=== PATIENT | female | born 1950 | race Caucasian/White ===

== ENCOUNTER → 2023-05-23 06:26 | Outpatient (REF) | payer MEDICARE, OTHER, SELFPAY ==
[2023-05-23 07:13] LABS: % Basophils 0.7 % (0-2); % Eosinophils 1.4 % (0-6); % Immature Granulocytes 0.4 % (0-0.5); % Lymphocytes 43.7 % (20.5-51.1); % Monocytes 4.7 % (1.7-9.3); % Neutrophils 49.1 % (42.2-75.2); Absolute Basophils 0.1 10^3/uL (0-0.2); Absolute Eosinophils 0.2 10^3/uL (0-0.7); Absolute Lymphocytes 4.5 10^3/uL (1.2-3.4); Absolute Monocytes 0.5 10^3/uL (0.1-0.6); Absolute Neutrophils 5.1 10^3/uL (1.4-6.5); Hematocrit 40.1 % (37.0-47.0); Hemoglobin 13.6 g/dL (12.0-16.0); Mean Corp Hgb Conc. 33.9 g/dL (33.0-37.0); Mean Corpuscular Hgb 29.8 pg (27.0-31.0); Mean Corpuscular Volume 87.9 fL (81.0-99.0); Mean Platelet Volume 10.8 fL (7.4-10.4); Nucleated Red Blood Cells % 0 %; Platelet Count 257 10^3/uL (130-400); Red Blood Cell Count 4.56 10^6/uL (4.20-5.40); Red Cell Dist. Width 12.8 % (11.5-14.5); White Blood Cell Count 10.4 10^3/uL (4.8-10.8)
[2023-05-23 07:28] LABS: ALT (SGPT) 17 U/L (0-35); AST (SGOT) 20 U/L (14-36); Albumin 4.3 g/dl (3.5-5.0); Alkaline Phosphatase 83 U/L (38-126); Blood Urea Nitrogen 27 mg/dl (7-17); Calcium 9.8 mg/dl (8.4-10.2); Carbon Dioxide 30 mmol/L (22-30); Chloride 101 mmol/L (98-107); Glucose 135 mg/dl (70-99); HDL Cholesterol 62 mg/dl; Iron 108 ug/dl (37-170); LDL Cholesterol, Calculated 52 mg/dl; Potassium 4.2 mmol/L (3.5-5.1); Sodium 141 mmol/L (135-145); Total Bilirubin 0.5 mg/dl (0.2-1.3); Total Cholesterol 140 mg/dl (50-199); Triglyceride 133 mg/dl (10-149); Very Low Density Lipoprotein 26 mg/dl (0-30); eGFR > 60.00
[2023-05-23 07:39] LABS: Intact PTH 74.4 pg/ml (13.6-85.8); Percent Saturation 37 % (20-50); Total Iron Binding Capacity 287 ug/dl (265-497)
[2023-05-23 07:43] LABS: Vitamin D, 25-OH*** 65.5 ng/mL (30-80)
[2023-05-23 07:46] LABS: Microalbumin, Random Urine 3.2 mg/dl (0.6-1.7)
[2023-05-23 07:47] LABS: Microalbumin/creatinine Ratio 40.6 mg/g
[2023-05-23 07:57] LABS: TSH 3.33 uIU/ml (0.47-4.68)
[2023-05-23 08:32] LABS: Vitamin B12 > 1000 pg/ml (239-931)
[2023-05-23 09:49] LABS: Glycohemoglobin (HgbA1c) 6.5 % (4.0-5.6)
== END ==
LOC: REG 06:26
PROVIDERS: ATTENDING PHYSICIAN Family Medicine
DX: E11.69 Type 2 diabetes mellitus with other specified complication (principal); I10 Essential (primary) hypertension; E21.3 Hyperparathyroidism, unspecified; Z98.84 Bariatric surgery status; Z79.899 Other long term (current) drug therapy; E78.00 Pure hypercholesterolemia, unspecified; E53.8 Deficiency of other specified B group vitamins; E11.9 Type 2 diabetes mellitus without complications
CPT/HCPCS: 80053; 80061; 82043; 82306; 82570; 82607; 82728; 82746; 83036; 83540; 83550; 83970; 84443; 85025

== ENCOUNTER → 2023-06-27 13:59 | Outpatient (REF) | payer MEDICARE, OTHER, SELFPAY | LOC: HWRAD 13:59 | PROVIDERS: ATTENDING PHYSICIAN Internal Medicine Endocrinology, Diabetes & Metabolism; FAMILY PHYSICIAN Family Medicine | DX: E04.2 Nontoxic multinodular goiter (principal) | CPT/HCPCS: 76536 ==

== ENCOUNTER → 2023-07-17 15:43 | Outpatient (REF) | payer MEDICARE, OTHER, SELFPAY | LOC: WDC 15:43 | PROVIDERS: ATTENDING PHYSICIAN Family Medicine | DX: Z12.31 Encounter for screening mammogram for malignant neoplasm of breast (principal) | CPT/HCPCS: 77063; 77067 ==

== ENCOUNTER 2023-08-26 15:34 | Emergency (ER) | payer MEDICARE, OTHER, SELFPAY ==
[2023-08-26 15:36] VITALS: BP 168/81
[2023-08-26 15:57] VITALS: BP 139/67
[2023-08-26 16:00] VITALS: BP 137/64
--- NOTE | 2023-08-26 16:10 | ED.GENMED ---
History of Present Illness
General
Chief Complaint: Headache
Source: patient
Exam Limitations: none
Time Seen by Provider: 08/26/23 15:51
Nursing documentation reviewed up to this point in time: agreed with
History of Present Illness
History of Present Illness:
73-year-old female with history of A-fib, asthma, GERD, HTN, HLD, NIDDM, Parkinson's, seizures, migraines, pacemaker presents for left parietal headache which started yesterday afternoon, sudden onset, it comes and goes. She is taken Tylenol with
no help. She slept well through the night and when she awakened she had the same headache. She states she feels little nauseous and has not vomited recent head injury. Denies change in vision.
Typically walks with a cane or a walker and she has had no change in her ambulatory status. She denies photophobia or phonophobia.
Past History
Past History
ED Past Medical History: Arrthythmia (Atrial fibrillation), Asthma, GERD, HTN, Hypercholesterolemia, Seizures and Other
ED Past Surgical History: Cardiac (Pacemaker insertion), , Gynecological (Hysterectomy, 2 benign breast surgeries) and Orthopedic (Total knee replacement, rotator cuff repair bilateral shoulders, laminectomy, foot surgery)
Social History
Tobacco: Former smoker
Alcohol: None
Drug: None
Personal:
Living: with family
Employment: Employed
Family History
Family History: Hypertension and Other (Father DM 2, colon cancer at 50 years old, pulmonary edema. Mother: Thoracic aortic aneurysm, rheumatoid arthritis. Sister GBM, multiple sclerosis, rheumatoid arthritis. Brother DM 1)
Review of Systems
Review of Systems
Allergies reviewed?: Yes
All Other Systems: ROS reviewed and negative except as documented in HPI and ROS
Constitutional: Denies fever
Respiratory: Denies trouble breathing
Cardiac: Denies chest pain
ABD/GI: Reports nausea ('mild'); Denies abdominal pain, vomiting or diarrhea
: Denies dysuria, frequency or difficulty voiding
Musculoskeletal: Reports no symptoms; Denies edema
Skin: Reports no symptoms
Neurological: Reports headache; Denies dizzy, weakness or numbness
Phy Exam
Physical Exam
Physical Exam:
GENERAL: No acute distress. A&Ox3.
CONSTITUTIONAL: Afebrile.
EYES: PERRL, conjunctivae normal
Neck: Supple
ENMT: moist mucus membranes, Pharynx nl
RESPIRATORY: Regular respirations, nonlabored, lungs clear.
CARDIOVASCULAR: Regular rate and rhythm, no murmurs, no rubs.
GI: Soft, nontender, normal BS
MUSCULOSKELETAL: Moves with ease. Well perfused. No edema
SKIN: Warm, dry, pink
PSYCH: Depressed mood and affect. Well kept, interactive and appropriate
NEUROLOGIC: Awake, alert and oriented. Speech slow (Parkinson's) CN 2-12 intact. Strength equal throughout, Cerebellum intact. No focal neurological deficits
Course
Orders/Labs/Results
Orders:
Orders
08/26/23
Electrocardiogram (*1) Stat
Other Reason for Exam: CP
08/26/23 16:27
0.9% Sodium Chloride 1000 ml [Nss] 1,000 ml IV BOLUS
Metoclopramide [Reglan] 10 mg IV NOW STA
08/26/23 16:29
Diphenhydramine [Benadryl] 25 mg IV NOW STA
Ketorolac [Toradol] 15 mg IV NOW STA
08/26/23 16:30
Dexamethasone Sod Phosphate [Decadron] 10 mg IV NOW STA
Vital Signs
Initial and Last Documented VS:
Initial Vital Signs
Temp Pulse Resp BP Pulse Ox
98.4 F 72 16 168/81 96
08/26/23 15:36 08/26/23 15:36 08/26/23 15:36 08/26/23 15:36 08/26/23 15:36
Last Documented Vital Signs
Temp Pulse Resp BP Pulse Ox
98.4 F 78 20 146/64 99
08/26/23 15:36 08/26/23 17:45 08/26/23 17:45 08/26/23 17:23 08/26/23 17:45
MDM/Problems Addressed
Differential Diagnosis Includes:
Migraine,
MDM/Problems Addressed:
73-year-old female with history of A-fib, asthma, GERD, HTN, HLD, NIDDM, COPD, Gastric bypass surgery, Parkinson's, seizures, migraines, pacemaker presents for left parietal headache which started yesterday afternoon, sudden onset, it comes and
goes. She is taken Tylenol with no help. She slept well through the night and when she awakened she had the same headache. She states she feels little nauseous and has not vomited recent head injury. Denies change in vision.
Typically walks with a cane or a walker and she has had no change in her ambulatory status. She denies photophobia or phonophobia.
Patient was evaluated here twice in March for headaches, DC'd home each time.
History of migraines, no focal neurologic, no acute distress, no recent injury, not anticoagulated, no indication for imaging or lab work at this time
Patient was cleared by her hand roller last week, he did a pacer check which showed proper pacing functions
Patient has an appointment with her neurologist on 09/11 as follow-up for her migraines and headaches
5:45 PM:
After IV fluids and medications patient states her headache is better and is requesting to go home
She states she has an appointment with her neurologist on 09/11.
Patient states her Apple Watch showed her heart rate of 110 for a few seconds earlier today. During her entire stay here her heart rate has been in the 70s.
Stable for discharge to care of who states he is comfortable taking her home.
Chronic conditions affecting care: HTN and Neurological disorder (Parkinson's )
*Critical Care Note
Total Time (30-74mins, 75-104mins- exclusive of procedures): Not Applicable
ED Attending Note
-
Portions of this chart may have been created with voice recognition software.� Occasional wrong word or��sound alike� substitutions may have occurred due to the inherent limitations of voice recognition software.
Discharge Plan
Departure
Patient Disposition: Home (Routine Discharge)
Date of Disposition: 08/26/23
Time of Disposition: 17:43
Patient with high blood pressure during this ER visit?: No
Condition: Good
Discharge Problem:
Headache
Instructions: Headache, Adult (DC)
Prescriptions:
No Action
pramipexole 0.25 MG tablet
0.5 mg PO TID
metformin 500 MG tablet extended release 24 hr
1,000 mg PO BID@0800,1700
loratadine 10 MG tablet
10 mg PO DAILY
bumetanide 1 MG tablet
1 mg PO DAILYPRN PRN (Reason: swelling)
cyanocobalamin (vitamin B-12) 1,000 MCG tablet
1,000 mcg PO DAILY Qty: 30 0RF
metoprolol tartrate 25 MG tablet
50 mg PO BID 0RF
rosuvastatin 5 MG tablet
5 mg PO DAILY
polyethylene glycol 3350 17 GRAMS powder in packet
17 grams PO DAILYPRN PRN (Reason: constipation)
clonazepam 0.5 MG tablet
0.5 mg PO HS
Patient Comments:
patient cloth picker on 06/17/21 #30
tramadol 50 MG tablet
50 mg PO Q6HPRN PRN (Reason: moderate pains)
losartan 25 MG tablet
25 mg PO DAILY
gabapentin 100 MG capsule
100 mg PO TID
Patient Comments:
1 cap in morning, 1 cap in afternoon and 3 caps at night
cholecalciferol (vitamin D3) 1,000 UNITS tablet
1,000 units PO DAILY
multivitamin with folic acid [Tab-A-Kaia] 1 TABLET tablet
1 tab PO DAILY
prochlorperazine maleate [Compazine] 10 mg tablet
10 mg PO TID PRN (Reason: nausea and vomiting) Qty: 10 0RF
Referrals:
Dakota Kwong MD [Non-Admitting Privileges] - Keep scheduled appt
Radha Jackson MD [Family Provider] - As needed
Activity Restrictions/Additional Instructions:
As we discussed, keep your appointment with your neurologist on 09/11.
Interventions
Interventions:
*Risk Screen - Suicide Last Done: 08/26/23 16:35
*General Assessment Last Done: 08/26/23 16:35
*Neglect/Abuse Screening Last Done: 08/26/23 16:35
ED- Fall Risk Assessment Last Done: 08/26/23 16:52
*ED COVID-19 Vaccine History Last Done: 08/26/23 15:36
*Nursing Disposition Last Done: 08/26/23 17:49
ED- Neurological Assessment Last Done: 08/26/23 16:51
Discharge Date and Time
Discharge Date/Time: 08/26/23 17:55
Print Language: LUX[place]
[2023-08-26 16:34] VITALS: BMI 40.8
[2023-08-26] MEDS: BENADRYL 25 MG IV (16:43)
[2023-08-26] MEDS: DECADRON 10 MG IV (16:43)
[2023-08-26] MEDS: NSS 1000 IV (16:43)
[2023-08-26] MEDS: TORADOL 15 MG IV (16:43)
[2023-08-26] MEDS: REGLAN 10 MG IV (16:44)
[2023-08-26 17:00] VITALS: BP 142/85
[2023-08-26 17:23] VITALS: BP 146/64
== END 2023-08-26 17:55 | disposition home or self-care (01) ==
LOC: EMR 15:34
PROVIDERS: EMERGENCY PHYSICIAN Emergency Medicine; FAMILY PHYSICIAN Family Medicine
DX: R51.9 Headache, unspecified (principal); I48.91 Unspecified atrial fibrillation; J45.909 Unspecified asthma, uncomplicated; I10 Essential (primary) hypertension; E78.00 Pure hypercholesterolemia, unspecified; E11.9 Type 2 diabetes mellitus without complications; G20.A1 Parkinson's disease without dyskinesia, without mention of fluctuations; G40.909 Epilepsy, unspecified, not intractable, without status epilepticus
CPT/HCPCS: 99283; 96374; 96375; 96361; 93005

== ENCOUNTER → 2023-09-11 06:27 | Outpatient (REF) | payer MEDICARE, OTHER, SELFPAY ==
[2023-09-11 07:24] LABS: % Basophils 0.5 % (0-2); % Eosinophils 0.9 % (0-6); % Immature Granulocytes 0.5 % (0-0.5); % Lymphocytes 37.7 % (20.5-51.1); % Monocytes 3.7 % (1.7-9.3); % Neutrophils 56.7 % (42.2-75.2); Absolute Basophils 0.1 10^3/uL (0-0.2); Absolute Eosinophils 0.1 10^3/uL (0-0.7); Absolute Immature Granulocytes 0.1 10^3/uL (0-0.05); Absolute Lymphocytes 4.2 10^3/uL (1.2-3.4); Absolute Monocytes 0.4 10^3/uL (0.1-0.6); Absolute Neutrophils 6.3 10^3/uL (1.4-6.5); Hemoglobin 13.1 g/dL (12.0-16.0); Mean Corp Hgb Conc. 34.5 g/dL (33.0-37.0); Mean Corpuscular Hgb 30.8 pg (27.0-31.0); Mean Corpuscular Volume 89.2 fL (81.0-99.0); Mean Platelet Volume 10.9 fL (7.4-10.4); Nucleated Red Blood Cells % 0 %; Platelet Count 223 10^3/uL (130-400); Red Blood Cell Count 4.26 10^6/uL (4.20-5.40); Red Cell Dist. Width 13.1 % (11.5-14.5)
[2023-09-11 07:44] LABS: INR 1.17; PT 14.8 Sec (11.4-14.6)
[2023-09-11 07:45] LABS: APTT 31.7 Sec (23.4-35.0)
[2023-09-11 07:54] LABS: Microalbumin, Random Urine 1.4 mg/dl (0.6-1.7); Microalbumin/creatinine Ratio 11.8 mg/g
[2023-09-11 07:58] LABS: ALT (SGPT) 15 U/L (0-35); AST (SGOT) 19 U/L (14-36); Alkaline Phosphatase 84 U/L (38-126); Blood Urea Nitrogen 21 mg/dl (7-17); Calcium 9.5 mg/dl (8.4-10.2); Carbon Dioxide 28 mmol/L (22-30); Chloride 105 mmol/L (98-107); Glucose 125 mg/dl (70-99); Sodium 140 mmol/L (135-145); Total Bilirubin 0.5 mg/dl (0.2-1.3); Total Protein 6.4 g/dl (6.3-8.2); eGFR > 60.00
[2023-09-11 08:06] LABS: Potassium 4.1 mmol/L (3.5-5.1)
[2023-09-11 11:12] LABS: Glycohemoglobin (HgbA1c) 6.2 % (4.0-5.6)
== END ==
LOC: REG 06:27
PROVIDERS: ATTENDING PHYSICIAN Orthopaedic Surgery Sports Medicine; FAMILY PHYSICIAN Family Medicine
DX: G20.A1 Parkinson's disease without dyskinesia, without mention of fluctuations (principal); E11.69 Type 2 diabetes mellitus with other specified complication; R80.1 Persistent proteinuria, unspecified; I10 Essential (primary) hypertension; Z01.818 Encounter for other preprocedural examination; M79.605 Pain in left leg; R73.03 Prediabetes
CPT/HCPCS: 36415; 80053; 82043; 82570; 83036; 85025; 85610; 85730

== ENCOUNTER → 2023-09-22 08:38 | Outpatient (REF) | payer MEDICARE, OTHER, SELFPAY ==
[2023-09-22 09:35] LABS: % Basophils 0.6 % (0-2); % Eosinophils 1.1 % (0-6); % Immature Granulocytes 0.4 % (0-0.5); % Lymphocytes 40.9 % (20.5-51.1); % Monocytes 5.8 % (1.7-9.3); % Neutrophils 51.2 % (42.2-75.2); Absolute Basophils 0.1 10^3/uL (0-0.2); Absolute Eosinophils 0.1 10^3/uL (0-0.7); Absolute Immature Granulocytes 0.1 10^3/uL (0-0.05); Absolute Lymphocytes 4.6 10^3/uL (1.2-3.4); Absolute Monocytes 0.7 10^3/uL (0.1-0.6); Absolute Neutrophils 5.8 10^3/uL (1.4-6.5); Hematocrit 40.5 % (37.0-47.0); Hemoglobin 13.9 g/dL (12.0-16.0); Mean Corp Hgb Conc. 34.3 g/dL (33.0-37.0); Mean Corpuscular Hgb 30.7 pg (27.0-31.0); Mean Corpuscular Volume 89.4 fL (81.0-99.0); Mean Platelet Volume 10.8 fL (7.4-10.4); Nucleated Red Blood Cells % 0 %; Platelet Count 249 10^3/uL (130-400); Red Blood Cell Count 4.53 10^6/uL (4.20-5.40); Red Cell Dist. Width 13.1 % (11.5-14.5); White Blood Cell Count 11.3 10^3/uL (4.8-10.8)
[2023-09-22 09:38] LABS: Urine Albumin Trace (Neg - Trace); Urine Bilirubin 1+ (Negative); Urine Character Clear (Clear); Urine Color Yellow; Urine Glucose Negative (Negative); Urine Ketone Trace (Negative); Urine Leukocyte 2+ (Negative); Urine Nitrite Negative (Negative); Urine Occult Blood Trace (Negative); Urine Urobilinogen 1+ (Neg - 1+)
[2023-09-22 09:56] LABS: Urine Bacteria Many (Negative); Urine Red Blood Cell 0-2 /HPF (0-2); Urine White Cell 16-20 /HPF (0-5)
== END ==
LOC: RAD 08:38
PROVIDERS: ATTENDING PHYSICIAN Family Medicine
DX: D72.829 Elevated white blood cell count, unspecified (principal); Z79.899 Other long term (current) drug therapy
CPT/HCPCS: 36415; 71046; 81003; 81015; 85025; 87086

== ENCOUNTER → 2023-09-25 16:13 | Outpatient (REF) | payer MEDICARE, OTHER, SELFPAY | LOC: REG 16:13 | PROVIDERS: ATTENDING PHYSICIAN Family Medicine | DX: D72.828 Other elevated white blood cell count (principal); N39.0 Urinary tract infection, site not specified | CPT/HCPCS: 87086 ==

== ENCOUNTER 2023-11-27 13:48 | Outpatient (RCR) | payer MEDICARE, OTHER, SELFPAY | END 2023-11-27 23:59 | disposition home or self-care (01) | LOC: RPT 13:48 | PROVIDERS: ATTENDING PHYSICIAN Orthopaedic Surgery Sports Medicine; FAMILY PHYSICIAN Internal Medicine | DX: Z96.652 Presence of left artificial knee joint (principal); Z47.1 Aftercare following joint replacement surgery; R26.89 Other abnormalities of gait and mobility; Z73.6 Limitation of activities due to disability | CPT/HCPCS: 97010; 97110; 97162; 97530; 97535 ==

== ENCOUNTER → 2023-12-25 13:01 | Outpatient (REF) | payer MEDICARE, OTHER, SELFPAY | LOC: RAD 13:01 | PROVIDERS: ATTENDING PHYSICIAN Nurse Practitioner Adult Health; FAMILY PHYSICIAN Family Medicine | DX: M79.662 Pain in left lower leg (principal); Z86.718 Personal history of other venous thrombosis and embolism; I48.0 Paroxysmal atrial fibrillation; R60.0 Localized edema | CPT/HCPCS: 93971 ==

== ENCOUNTER 2023-12-28 10:55 | Outpatient (RCR) | payer MEDICARE, OTHER, SELFPAY | END 2023-12-28 23:59 | disposition home or self-care (01) | LOC: RPT 10:55 | PROVIDERS: ATTENDING PHYSICIAN Orthopaedic Surgery Sports Medicine; FAMILY PHYSICIAN Internal Medicine | DX: Z47.1 Aftercare following joint replacement surgery (principal); Z96.652 Presence of left artificial knee joint; R26.89 Other abnormalities of gait and mobility; Z73.6 Limitation of activities due to disability | CPT/HCPCS: 97010; 97110; 97530 ==

== ENCOUNTER → 2024-01-03 15:00 | Outpatient (REF) | payer MEDICARE, OTHER, SELFPAY ==
[2024-01-03 17:38] LABS: Urine Albumin Trace (Neg - Trace); Urine Bilirubin 3+ (Negative); Urine Character Very Cloudy (Clear); Urine Color Red; Urine Glucose Negative (Negative); Urine Ketone Negative (Negative); Urine Leukocyte 1+ (Negative); Urine Nitrite Positive (Negative); Urine Occult Blood Trace (Negative); Urine Specific Gravity 1.015 (<1.030); Urine Urobilinogen 4+ (Neg - 1+)
[2024-01-03 17:54] LABS: Hematocrit 40.2 % (37.0-47.0); Hemoglobin 13.2 g/dL (12.0-16.0); Mean Corp Hgb Conc. 32.8 g/dL (33.0-37.0); Mean Corpuscular Hgb 28.6 pg (27.0-31.0); Mean Corpuscular Volume 87.2 fL (81.0-99.0); Mean Platelet Volume 11.2 fL (7.4-10.4); Platelet Count 324 10^3/uL (130-400); Red Blood Cell Count 4.61 10^6/uL (4.20-5.40); Red Cell Dist. Width 13.1 % (11.5-14.5); White Blood Cell Count 14.2 10^3/uL (4.8-10.8)
[2024-01-03 17:58] LABS: Urine Red Blood Cell 0-2 /HPF (0-2); Urine White Cell 30-40 /HPF (0-5)
[2024-01-03 17:59] LABS: Urine Bacteria Many (Negative)
[2024-01-03 18:49] LABS: % Basophils 0.6 % (0-2); % Eosinophils 0.9 % (0-6); % Immature Granulocytes 0.4 % (0-0.5); % Lymphocytes 38.3 % (20.5-51.1); % Monocytes 5.1 % (1.7-9.3); % Neutrophils 54.7 % (42.2-75.2); Absolute Basophils 0.1 10^3/uL (0-0.2); Absolute Eosinophils 0.1 10^3/uL (0-0.7); Absolute Immature Granulocytes 0.1 10^3/uL (0-0.05); Absolute Lymphocytes 5.4 10^3/uL (1.2-3.4); Absolute Monocytes 0.7 10^3/uL (0.1-0.6); Absolute Neutrophils 7.8 10^3/uL (1.4-6.5); Nucleated Red Blood Cells % 0 %
== END ==
LOC: REG 15:00
PROVIDERS: ATTENDING PHYSICIAN Nurse Practitioner Adult Health; FAMILY PHYSICIAN Family Medicine
DX: D72.829 Elevated white blood cell count, unspecified (principal); R39.9 Unspecified symptoms and signs involving the genitourinary system
CPT/HCPCS: 36415; 81003; 81015; 85025; 87077; 87086; 87186

== ENCOUNTER → 2024-03-29 09:28 | Outpatient (REF) | payer MEDICARE, OTHER, SELFPAY ==
[2024-03-29 10:04] LABS: % Basophils 0.5 % (0-2); % Eosinophils 1.4 % (0-6); % Immature Granulocytes 0.4 % (0-0.5); % Monocytes 5.3 % (1.7-9.3); % Neutrophils 51.4 % (42.2-75.2); Absolute Basophils 0.1 10^3/uL (0-0.2); Absolute Eosinophils 0.1 10^3/uL (0-0.7); Absolute Lymphocytes 3.8 10^3/uL (1.2-3.4); Absolute Monocytes 0.5 10^3/uL (0.1-0.6); Absolute Neutrophils 4.7 10^3/uL (1.4-6.5); Hematocrit 37.7 % (37.0-47.0); Hemoglobin 12.4 g/dL (12.0-16.0); Mean Corp Hgb Conc. 32.9 g/dL (33.0-37.0); Mean Corpuscular Volume 88.1 fL (81.0-99.0); Nucleated Red Blood Cells % 0 %; Platelet Count 255 10^3/uL (130-400); Red Blood Cell Count 4.28 10^6/uL (4.20-5.40); White Blood Cell Count 9.2 10^3/uL (4.8-10.8)
[2024-03-29 10:33] LABS: Microalbumin, Random Urine 12.2 mg/dl (0.6-1.7)
[2024-03-29 10:36] LABS: ALT (SGPT) 21 U/L (0-35); AST (SGOT) 21 U/L (14-36); Albumin 4.3 g/dl (3.5-5.0); Alkaline Phosphatase 93 U/L (38-126); Blood Urea Nitrogen 24 mg/dl (7-17); Calcium 9.6 mg/dl (8.4-10.2); Carbon Dioxide 25 mmol/L (22-30); Chloride 103 mmol/L (98-107); Glucose 132 mg/dl (70-99); HDL Cholesterol 67 mg/dl; LDL Cholesterol, Calculated 49 mg/dl; Sodium 140 mmol/L (135-145); Total Bilirubin 0.5 mg/dl (0.2-1.3); Total Cholesterol 139 mg/dl (50-199); Total Protein 7.1 g/dl (6.3-8.2); Triglyceride 117 mg/dl (10-149); Very Low Density Lipoprotein 23 mg/dl (0-30); eGFR > 60.00
[2024-03-29 11:04] LABS: TSH Reflex To Free T4 3.48 uIU/ml (0.47-4.68)
[2024-03-29 11:23] LABS: Vitamin B12 906 pg/ml (239-931)
[2024-03-29 13:22] LABS: Glycohemoglobin (HgbA1c) 6.2 % (4.0-5.6)
== END ==
LOC: REG 09:28
PROVIDERS: ATTENDING PHYSICIAN Family Medicine
DX: E11.69 Type 2 diabetes mellitus with other specified complication (principal); E78.00 Pure hypercholesterolemia, unspecified; E53.8 Deficiency of other specified B group vitamins; I10 Essential (primary) hypertension
CPT/HCPCS: 36415; 80053; 80061; 82043; 82570; 82607; 83036; 84443; 85025

== ENCOUNTER → 2024-06-20 07:31 | Outpatient (REF) | payer MEDICARE, OTHER, SELFPAY ==
[2024-06-20 09:10] LABS: INR 1.13; PT 14.8 Sec (11.4-14.6)
[2024-06-20 09:38] LABS: ALT (SGPT) 14 U/L (0-35); AST (SGOT) 19 U/L (14-36); Albumin 4.2 g/dl (3.5-5.0); Alkaline Phosphatase 90 U/L (38-126); Blood Urea Nitrogen 25 mg/dl (7-17); Calcium 9.9 mg/dl (8.4-10.2); Carbon Dioxide 26 mmol/L (22-30); Chloride 105 mmol/L (98-107); Glucose 146 mg/dl (70-99); Potassium 4.4 mmol/L (3.5-5.1); Sodium 142 mmol/L (135-145); Total Bilirubin 0.5 mg/dl (0.2-1.3); Total Protein 7.1 g/dl (6.3-8.2); eGFR > 60.00
[2024-06-20 09:55] LABS: Glycohemoglobin (HgbA1c) 6.6 % (4.0-5.6)
[2024-06-20 11:48] LABS: Microalbumin, Random Urine 11.3 mg/dl (0.6-1.7)
[2024-06-20 11:53] LABS: Microalbumin/creatinine Ratio 88.8 mg/g
== END ==
LOC: REG 07:31
PROVIDERS: ATTENDING PHYSICIAN Internal Medicine Cardiovascular Disease; FAMILY PHYSICIAN Family Medicine
DX: I48.0 Paroxysmal atrial fibrillation (principal); Z79.01 Long term (current) use of anticoagulants; E11.69 Type 2 diabetes mellitus with other specified complication; E11.65 Type 2 diabetes mellitus with hyperglycemia
CPT/HCPCS: 36415; 80053; 82043; 82570; 83036; 85610

== ENCOUNTER → 2024-06-26 07:07 | Outpatient (REF) | payer MEDICARE, OTHER, SELFPAY ==
[2024-06-26 07:51] LABS: PT 23.1 Sec (11.4-14.6)
== END ==
LOC: REG 07:07
PROVIDERS: ATTENDING PHYSICIAN Internal Medicine Cardiovascular Disease; FAMILY PHYSICIAN Family Medicine
DX: I48.0 Paroxysmal atrial fibrillation (principal); Z79.01 Long term (current) use of anticoagulants
CPT/HCPCS: 36415; 85610

== ENCOUNTER → 2024-07-03 08:45 | Outpatient (REF) | payer MEDICARE, OTHER, SELFPAY ==
[2024-07-03 09:33] LABS: INR 3.08; PT 32.1 Sec (11.4-14.6)
== END ==
LOC: REG 08:45
PROVIDERS: ATTENDING PHYSICIAN Internal Medicine Cardiovascular Disease
DX: I48.0 Paroxysmal atrial fibrillation (principal); Z79.01 Long term (current) use of anticoagulants
CPT/HCPCS: 36415; 85610

== ENCOUNTER → 2024-07-10 13:07 | Outpatient (REF) | payer MEDICARE, OTHER, SELFPAY ==
[2024-07-10 15:20] LABS: INR 2.95; PT 31.1 Sec (11.4-14.6)
== END ==
LOC: REG 13:07
PROVIDERS: ATTENDING PHYSICIAN Internal Medicine Cardiovascular Disease; FAMILY PHYSICIAN Family Medicine
DX: I48.0 Paroxysmal atrial fibrillation (principal); Z79.01 Long term (current) use of anticoagulants
CPT/HCPCS: 36415; 85610

== ENCOUNTER → 2024-08-04 10:03 | Outpatient (REF) | payer MEDICARE, OTHER, SELFPAY ==
[2024-08-04 10:57] LABS: INR 3.19; PT 32.5 Sec (11.4-14.6)
== END ==
LOC: REG 10:03
PROVIDERS: ATTENDING PHYSICIAN Internal Medicine Cardiovascular Disease; FAMILY PHYSICIAN Family Medicine
DX: I48.0 Paroxysmal atrial fibrillation (principal)
CPT/HCPCS: 36415; 85610

== ENCOUNTER 2024-08-06 00:57 | Emergency (ER) | payer MEDICARE, OTHER, SELFPAY ==
[2024-08-06 01:01] VITALS: BP 178/91
[2024-08-06 01:02] VITALS: BP 178/91
--- NOTE | 2024-08-06 01:37 | ED.GENMED ---
History of Present Illness
General
Chief Complaint: Chest Pain
Source: patient
Exam Limitations: none
Time Seen by Provider: 08/06/24 01:33
Nursing documentation reviewed up to this point in time: agreed with
History of Present Illness
History of Present Illness:
74-year-old female with a past medical history of COPD, Parkinson disease, A-fib on warfarin, hypertension, hyperlipidemia, diabetes who presents to the emergency department today with concerns of chest pain. Patient reports that the pain woke her
up from sleep at around 10 PM. She rates the pain a 6 out of 10. She denies radiation through the chest through the back. She never had this pain before. EMS was called and she was given aspirin. Patient feels like the aspirin did help her
symptoms. She currently rates the pain 3 out of 10. She also felt diaphoretic and nauseous at that time. She denies any abdominal pain. She denies any back pain. She denies any fevers or chills. Denies any vomiting. She has a pacemaker in
place since age 50 due to symptomatic bradycardia. She follows with Dr. Loja. She states that she has been feeling well the past few days and that this came on all of a sudden. Patient denies any history of MT. She denies any paresthesias in
her upper or lower extremities.
Past History
Past History
ED Past Medical History: Arrthythmia (Atrial fibrillation), Asthma, GERD, HTN, Hypercholesterolemia, Seizures and Other
ED Past Surgical History: Cardiac (Pacemaker insertion), , Gynecological (Hysterectomy, 2 benign breast surgeries) and Orthopedic (Total knee replacement, rotator cuff repair bilateral shoulders, laminectomy, foot surgery)
Social History
Tobacco: Former smoker
Alcohol: None
Drug: None
Personal:
Living: with family
Employment: Employed
Family History
Family History: Hypertension and Other (Father DM 2, colon cancer at 50 years old, pulmonary edema. Mother: Thoracic aortic aneurysm, rheumatoid arthritis. Sister GBM, multiple sclerosis, rheumatoid arthritis. Brother DM 1)
Review of Systems
Review of Systems
All Other Systems: ROS reviewed and negative except as documented in HPI and ROS
Phy Exam
Physical Exam
Physical Exam:
General: Patient is well appearing and in no acute distress; non-toxic
Skin: Warm and dry, no rashes or lesions
Head: Normocephalic, atraumatic
Eyes: Sclera non-icteric. EOMs intact.
Cardiac: Regular rate and rhythm, no murmurs, no tenderness to palpation of external chest wall
Peripheral Vascular: No lower extremity swelling or edema
Pulm: Normal respiratory effort, no wheezes, rales, or rhonchi
Abdomen: No abdominal tenderness to palpation, no epigastric tenderness
Neuro: CN II-XII intact, no focal neurologic deficits.
Psychiatric: Appropriate mood and affect.
Scores
Heart Score for Chest Pain Patients
STEMI patient?: No
History: Moderately Suspicious
ECG: Normal
Age: >/= 65 years
Risk Factors: 1 or 2 Risk Factors
Troponin: </= Normal Limit
Heart Score for Chest Pain Patients: 4
Heart Score Risk: 20.3% MACE over next 6 weeks
PE Wells Score
Symptoms of DVT: No
No alternative diagnosis better explains the illness: No
Tachycardia with pulse > 100: No
Immobilization (>=3 days) or surgery within previous 4 weeks: No
Prior history of DVT or pulmonary embolism: No
Presence of hemoptysis: No
Presence of malignancy: No
Pulmonary Embolism Risk Score: 0
Probability of PE: Pt is low risk
Course
Orders/Labs/Results
Orders:
Orders
08/06/24 01:00
Electrocardiogram (*1) Urgent
Reason for Study: Chest Pain
Cardiac Monitoring- Treatment ONCE
EKG- Treatment ONCE
IV Insert/Care/Rem.- Treatment PRN
O2 Therapy [RESP] Urgent
Titrate/Wean O2 to maintain O2 sat greater than (%): 90
Special Instructions: Maintain sats >/=90%
Pulse Ox/spot Check [RESP] Urgent
Quantity: 1
Special Instructions: ON ROOM AIR
08/06/24 01:15
Prothrombin Time Urgent
08/06/24 01:20
Complete Blood Count/With Diff Urgent
Comprehensive Metabolic Panel Urgent
Troponin I Urgent
08/06/24 02:02
pacemaker [Interrogate Pacemaker- Treatment] ONCE
08/06/24 02:03
CR Chest - 2 Views Urgent
Comment:
Reason For Exam: chest pain
08/06/24 03:25
Acetaminophen [Tylenol] 650 mg PO NOW STA
08/06/24 03:39
Troponin I Urgent
08/06/24 04:00
Electrocardiogram (*1) Urgent
Reason for Study: Chest Pain
Abnormal Lab Results
08/06/24 08/06/24
01:15 01:20
WBC 11.5 H 10^3/uL
(4.8-10.8)
MCHC 32.7 L g/dL
(33.0-37.0)
MPV 10.9 H fL
(7.4-10.4)
Abs Immat Gran (auto) 0.1 H 10^3/uL
(0-0.05)
Absolute Lymphs (auto) 4.4 H 10^3/uL
(1.2-3.4)
Absolute Monos (auto) 0.7 H 10^3/uL
(0.1-0.6)
PT 31.1 H Sec
(11.4-14.6)
Chloride 108 H mmol/L
(98-107)
BUN 25 H mg/dl
(7-17)
Glucose 182 H mg/dl
(70-99)
08/06/24 01:20
08/06/24 01:20
Vital Signs
Initial and Last Documented VS:
Initial Vital Signs
BP
178/91
08/06/24 01:01
Last Documented Vital Signs
Temp Pulse Resp BP Pulse Ox
97.9 F 70 20 148/65 97
08/06/24 01:02 08/06/24 05:20 08/06/24 05:20 08/06/24 03:12 08/06/24 05:20
MDM/Problems Addressed
Differential Diagnosis Includes:
ddx include ACS, pneumothorax, costochondritis, dysrhythmia
MDM/Problems Addressed:
74-year-old female with a past medical history of COPD, Parkinson disease, A-fib on warfarin, hypertension, hyperlipidemia, diabetes who presents to the emergency department today with concerns of chest pain. It woke her up from sleep. It is
non-pleuritic. She has no associated respiratory symptoms. On PE, she is well appearing, in no acute distress. Her ECG shows normal sinus rhythm with no ischemic changes. Her troponin is undetectable x2. There is no concerning findings on her
pacemaker evaluation. On my reevaluation, patient states that she still experiences pain but it is minimal compared to earlier. Considering the presence of pain and heart score of 4, I did recommend admission for observation. Patient is requesting
to be discharged and does not want to be admitted. Patient will be discharged with chest pain hot line. Strict return precautions discussed. She states she will call Dr. Loja.
*Pulse Oximetry
Patient hypoxic: no
*Critical Care Note
Total Time (30-74mins, 75-104mins- exclusive of procedures): Not Applicable
Data Reviewed
Review of Other/Old Records Reveals: Records (reviewed prior er physician documentation for chest pain)
Patient Management
Escalation/DeEscalation of care consider admission/obs:
reviewed case with ER attending patient stable for discharge
ED Attending Note
-
Portions of this chart may have been created with voice recognition software.� Occasional wrong word or��sound alike� substitutions may have occurred due to the inherent limitations of voice recognition software.
Discharge Plan
Departure
Patient Disposition: Home (Routine Discharge)
Date of Disposition: 08/06/24
Time of Disposition: 05:01
Patient with high blood pressure during this ER visit?: Yes
Condition: Good
Discharge Problem:
Chest pain
Instructions: Chest Pain DCA Follow Up, BLOOD PRESSURE
Prescriptions:
No Action
pramipexole 0.25 MG tablet
0.5 mg PO TID
metformin 500 MG tablet extended release 24 hr
1,000 mg PO BID@0800,1700
loratadine 10 MG tablet
10 mg PO DAILY
bumetanide 1 MG tablet
1 mg PO DAILYPRN PRN (Reason: swelling)
cyanocobalamin (vitamin B-12) 1,000 MCG tablet
1,000 mcg PO DAILY Qty: 30 0RF
metoprolol tartrate 25 MG tablet
50 mg PO BID 0RF
rosuvastatin 5 MG tablet
5 mg PO DAILY
polyethylene glycol 3350 17 GRAMS powder in packet
17 grams PO DAILYPRN PRN (Reason: constipation)
clonazepam 0.5 MG tablet
0.5 mg PO HS
Patient Comments:
patient grape picker on 06/17/21 #30
tramadol 50 MG tablet
50 mg PO Q6HPRN PRN (Reason: moderate pains)
losartan 25 MG tablet
25 mg PO DAILY
gabapentin 100 MG capsule
100 mg PO TID
Patient Comments:
1 cap in morning, 1 cap in afternoon and 3 caps at night
cholecalciferol (vitamin D3) 1,000 UNITS tablet
1,000 units PO DAILY
multivitamin with folic acid [Tab-A-Kaia] 1 TABLET tablet
1 tab PO DAILY
prochlorperazine maleate [Compazine] 10 mg tablet
10 mg PO TID PRN (Reason: nausea and vomiting) Qty: 10 0RF
Referrals:
Radha Jackson MD [Family Provider, Family Practice]
Activity Restrictions/Additional Instructions:
You should receive a call from Dr. Kang's office in the next 24 hours to schedule a follow up appointment. If you do not receive a call, please call tomorrow.
PLEASE RETURN TO THE ER SHOULD YOU DEVELOP RETURN OF YOUR PAIN, SHORTNESS OF BREATH, INTRACTABLE NAUSEA OR VOMITING, INABILITY TOLERATE ORAL INTAKE, DIZZINESS, LIGHTHEADEDNESS, WEAKNESS IN ONE-SIDED BODY VERSUS OTHER, FEVERS OR CHILLS, OR ANY OTHER
SIGNS OR SYMPTOMS WORRISOME TO YOU.
Interventions
Interventions:
*Risk Screen - Suicide Last Done: 08/06/24 01:02
*General Assessment Last Done: 08/06/24 01:02
*Neglect/Abuse Screening Last Done: 08/06/24 01:02
*ED- Fall Risk Assessment Last Done: 08/06/24 01:02
*ED COVID-19 Vaccine History Last Done: 08/06/24 01:38
*Nursing Disposition Last Done: 08/06/24 05:20
ED- Cardiac Assessment Last Done: 08/06/24 01:39
Discharge Date and Time
Discharge Date/Time: 08/06/24 05:20
Print Language: SA[place] TOME[place]
[2024-08-06 01:38] VITALS: BMI 43.7
[2024-08-06 01:38] LABS: % Basophils 0.4 % (0-2); % Eosinophils 1.4 % (0-6); % Immature Granulocytes 0.4 % (0-0.5); % Lymphocytes 38.4 % (20.5-51.1); % Monocytes 5.7 % (1.7-9.3); % Neutrophils 53.7 % (42.2-75.2); Absolute Basophils 0.1 10^3/uL (0-0.2); Absolute Eosinophils 0.2 10^3/uL (0-0.7); Absolute Immature Granulocytes 0.1 10^3/uL (0-0.05); Absolute Lymphocytes 4.4 10^3/uL (1.2-3.4); Absolute Monocytes 0.7 10^3/uL (0.1-0.6); Absolute Neutrophils 6.1 10^3/uL (1.4-6.5); Hematocrit 40.4 % (37.0-47.0); Hemoglobin 13.2 g/dL (12.0-16.0); Mean Corp Hgb Conc. 32.7 g/dL (33.0-37.0); Mean Corpuscular Hgb 28.7 pg (27.0-31.0); Mean Corpuscular Volume 87.8 fL (81.0-99.0); Mean Platelet Volume 10.9 fL (7.4-10.4); Nucleated Red Blood Cells % 0 %; Platelet Count 245 10^3/uL (130-400); Red Cell Dist. Width 13.4 % (11.5-14.5); White Blood Cell Count 11.5 10^3/uL (4.8-10.8)
[2024-08-06 01:59] LABS: ALT (SGPT) 10 U/L (0-35); AST (SGOT) 19 U/L (14-36); Albumin 4.2 g/dl (3.5-5.0); Alkaline Phosphatase 84 U/L (38-126); Blood Urea Nitrogen 25 mg/dl (7-17); Calcium 9.4 mg/dl (8.4-10.2); Carbon Dioxide 24 mmol/L (22-30); Chloride 108 mmol/L (98-107); Estimated Creatinine Clearance 82 ml/min; Glucose 182 mg/dl (70-99); Potassium 4.3 mmol/L (3.5-5.1); Sodium 142 mmol/L (135-145); Total Bilirubin 0.4 mg/dl (0.2-1.3); Total Protein 6.8 g/dl (6.3-8.2); eGFR > 60.00
[2024-08-06 02:00] VITALS: BP 155/81
[2024-08-06 02:03] LABS: Troponin I < 0.012 ng/ml
[2024-08-06 02:28] LABS: INR 3.01; PT 31.1 Sec (11.4-14.6)
[2024-08-06 03:12] VITALS: BP 148/65
[2024-08-06] MEDS: TYLENOL 650 MG PO (03:35)
[2024-08-06 04:14] LABS: Troponin I < 0.012 ng/ml
== END 2024-08-06 05:20 | disposition home or self-care (01) ==
LOC: EMR 00:57
PROVIDERS: Physician Assistant; EMERGENCY PHYSICIAN Student in an Organized Health Care Education/Training Program; FAMILY PHYSICIAN Family Medicine
DX: R07.89 Other chest pain (principal); J44.9 Chronic obstructive pulmonary disease, unspecified; G20.A1 Parkinson's disease without dyskinesia, without mention of fluctuations; I48.91 Unspecified atrial fibrillation; I10 Essential (primary) hypertension; E11.9 Type 2 diabetes mellitus without complications; K21.9 Gastro-esophageal reflux disease without esophagitis; E78.00 Pure hypercholesterolemia, unspecified; J44.89 Other specified chronic obstructive pulmonary disease; Z79.01 Long term (current) use of anticoagulants; Z80.0 Family history of malignant neoplasm of digestive organs; Z82.49 Family history of ischemic heart disease and other diseases of the circulatory system; Z83.3 Family history of diabetes mellitus; Z87.891 Personal history of nicotine dependence; Z90.710 Acquired absence of both cervix and uterus; Z95.0 Presence of cardiac pacemaker; Z96.659 Presence of unspecified artificial knee joint
CPT/HCPCS: 99283; 71046; 80053; 84484; 85025; 85610; 93005

== ENCOUNTER → 2024-08-13 12:34 | Outpatient (REF) | payer MEDICARE, OTHER, SELFPAY ==
[2024-08-13 14:22] LABS: INR 2.07; PT 23.8 Sec (11.4-14.6)
== END ==
LOC: REG 12:34
PROVIDERS: ATTENDING PHYSICIAN Internal Medicine Cardiovascular Disease; FAMILY PHYSICIAN Family Medicine
DX: I48.0 Paroxysmal atrial fibrillation (principal); Z79.01 Long term (current) use of anticoagulants
CPT/HCPCS: 36415; 85610

== ENCOUNTER 2024-09-14 22:32 | Emergency (ER) | payer MEDICARE, OTHER, SELFPAY ==
[2024-09-14 22:39] VITALS: BP 185/116
[2024-09-14 23:41] VITALS: BP 131/73
[2024-09-14 23:50] LABS: Hematocrit 38.0 % (37.0-47.0); Hemoglobin 12.4 g/dL (12.0-16.0); Mean Corp Hgb Conc. 32.6 g/dL (33.0-37.0); Mean Corpuscular Volume 89.2 fL (81.0-99.0); Nucleated Red Blood Cells % 0 %; Platelet Count 230 10^3/uL (130-400); Red Cell Dist. Width 13.8 % (11.5-14.5)
[2024-09-15] VITALS: BP 150/73
[2024-09-15 00:03] LABS: ALT (SGPT) 11 U/L (0-35); AST (SGOT) 18 U/L (14-36); Albumin 4.1 g/dl (3.5-5.0); Alkaline Phosphatase 77 U/L (38-126); Blood Urea Nitrogen 33 mg/dl (7-17); Calcium 9.2 mg/dl (8.4-10.2); Carbon Dioxide 22 mmol/L (22-30); Chloride 110 mmol/L (98-107); Glucose 132 mg/dl (70-99); Potassium 4.2 mmol/L (3.5-5.1); Sodium 140 mmol/L (135-145); Total Protein 6.8 g/dl (6.3-8.2); eGFR > 60.00
[2024-09-15 00:14] LABS: Troponin I < 0.012 ng/ml
[2024-09-15 01:00] VITALS: BP 141/66
--- NOTE | 2024-09-15 01:29 | ED.GENMED ---
History of Present Illness
General
Chief Complaint: Chest Pain
Source: patient
Exam Limitations: none
Time Seen by Provider: 09/15/24 01:13
Nursing documentation reviewed up to this point in time: agreed with
History of Present Illness
History of Present Illness:
Note:
CHIEF COMPLAINT(S)
Chest pain radiating to the neck and upper abdomen with associated nausea.
HISTORY OF PRESENT ILLNESS
The patient is a 74-year-old female with a known history of atrial fibrillation on warfarin, COPD, Parkinson disease, htn, hlp, who presented with chest pain radiating to the front of the neck. The symptoms started around 12 pm today, with no
relief from [id number] antacids such as Tums. The symptoms come and go at random. The patient denies numbness or tingling in the arms and legs and has not experienced any difficulty walking. Additionally, there has been no associated shortness
of breath. She reports that it feels like when she has had reflux. Patient does take omeprazole daily. She currently does not follow with a GI doctor. The patients pain in the neck has since improved, though occasional recurrences occur while nausea
persists. She reports that she recently saw her advertising project manager and reports that there were no recent concerns from her advertising project manager regarding her heart. She currently denies palpitations, vomiting,abdominal pain, coughing, fevers or chills, sick
contacts, heavily lifting, injury to the chest wall. Upon my evaluation, patient is requesting to go home.
PHYSICAL EXAM
- Nursing notes reviewed and vital signs reviewed.
General: Patient is well appearing and in no acute distress; non-toxic
Skin: Warm and dry, no rashes or lesions
Head: Normocephalic, atraumatic
Eyes: Sclera non-icteric. EOMs intact.
Cardiac: Regular rate and rhythm, no murmurs. No tenderness to palpation of the external chest wall.
Peripheral Vascular: No lower extremity swelling or edema. 2+ radial pulses bilaterally.
Pulm: Normal respiratory effort, no wheezes, rales, or rhonchi.
Abdomen: No abdominal tenderness to palpation
Neuro: CN II-XII intact, no focal neurologic deficits.
Psychiatric: Appropriate mood and affect.
DIFFERENTIAL DIAGNOSIS
The Differential Diagnosis includes, in no particular order and is not limited to:
1. Gastroesophageal reflux disease (GERD)
2. Peptic ulcer disease
3. Aortic dissection
4. Myocardial infarction
5. Esophageal spasm
6. Pericarditis
7. Costochondritis
8. Biliary colic
9. Pancreatitis
10. Cervical radiculopathy
CHART REVIEW
-reviewed ER physician documentation from 08/06/24
-reviewed documentation from 08/26/23 patient seen for headache discharged after unremarkable workup and improvement in symptoms
MDM/DISPOSITION
A 74-year-old female presented to the emergency department with concerns of chest pain radiating into the neck. She has a history of atrial fibrillation, hypertension, hyperlipidemia, diabetes, and gastroesophageal reflux disease (GERD). The chest
pain was described as similar to previous GERD episodes and was accompanied by nausea. Two troponin levels were undetectable, reducing the likelihood of myocardial infarction. Two ECGs showed no new ischemic changes.
A chest X-ray was recommended to further evaluate alternative causes of chest pain, but the patient refused it. She noted complete relief of her pain with a gastrointestinal cocktail and just notes some mild nausea at time of discharge. Suspect
acute reflux. Discussed follow up with GI. No indication of CT scan of the abdomen as patient's abdomen is soft and non-tender. The last time patient had an endoscopy was 2 years ago. I did also consider pulmonary embolism however very unlikely
given lack of shortness of breath, lack of pleuritic chest pain, current chest pain resolution, no tachycardia, and use or warfarin. I did also consider aortic dissection given the chest pain with associated neck pain however, given her stable
vitals, lack of acute distress, and normal physical exam findings with no neurologic deficits and 2+ radial pulses as well as the presence of intermittent symptoms and resolution with GI cocktail, this is highly unlikely. I did interrogate
patient's pacemaker but patient did not want to stay for the results. Discussed follow up with PCP and GI, discussed strict return precautions. Reviewed case and treatment plan with ER attending who was in agreement with plan. Patient stable for
discharge.
Past History
Past History
ED Past Medical History: Arrthythmia (Atrial fibrillation), Asthma, GERD, HTN, Hypercholesterolemia, Seizures and Other
ED Past Surgical History: Cardiac (Pacemaker insertion), , Gynecological (Hysterectomy, 2 benign breast surgeries) and Orthopedic (Total knee replacement, rotator cuff repair bilateral shoulders, laminectomy, foot surgery)
Social History
Tobacco: Former smoker
Alcohol: None
Drug: None
Personal:
Living: with family
Employment: Employed
Family History
Family History: Hypertension and Other (Father DM 2, colon cancer at 50 years old, pulmonary edema. Mother: Thoracic aortic aneurysm, rheumatoid arthritis. Sister GBM, multiple sclerosis, rheumatoid arthritis. Brother DM 1)
Review of Systems
Review of Systems
All Other Systems: ROS reviewed and negative except as documented in HPI and ROS
Phy Exam
Physical Exam
Physical Exam:
see hpi
Scores
Heart Score for Chest Pain Patients
STEMI patient?: No
History: Slightly or Non-Suspicious
ECG: Nonspecific Repolarization
Age: >/= 65 years
Risk Factors: >/= 3 Risk Factors or History of CAD
Troponin: </= Normal Limit
Heart Score for Chest Pain Patients: 5
Heart Score Risk: 20.3% MACE over next 6 weeks
Course
Orders/Labs/Results
Orders:
Orders
09/14/24 22:33
EKG [Electrocardiogram (*1)] Urgent
Reason for Study: Chest Pain
EKG- Treatment ONCE
09/14/24 23:31
Complete Blood Count/With Diff Urgent
Comprehensive Metabolic Panel Urgent
Troponin I Urgent
09/15/24 01:35
Mag Hydrox/Al Hydrox/Simeth [Maalox] 30 ml Phenobarb/Hyoscy/Atropine/Scop [] 10 ml Viscous Lidocaine 2% [Xylocaine Viscous Cup] 10 ml PO NOW
09/15/24 01:37
Ondansetron HCl [Zofran] 4 mg PO NOW STA
09/15/24 01:41
Mag Hydrox/Al Hydrox/Simeth [Maalox] 30 ml .ROUTE .STK-MED ONE
Phenobarb/Hyoscy/Atropine/Scop [] 10 ml .ROUTE .STK-MED ONE
Viscous Lidocaine 2% [Xylocaine Viscous Cup] 15 ml .ROUTE .STK-MED ONE
09/15/24 01:44
Electrocardiogram (*1) Urgent
Reason for Study: Chest Pain
09/15/24 01:49
Troponin I Urgent
09/15/24 01:53
Prochlorperazine [Compazine] 10 mg PO NOW STA
09/15/24 02:21
pacemaker [Interrogate Pacemaker- Treatment] ONCE
Abnormal Lab Results
09/14/24
23:31
WBC 12.4 H 10^3/uL
(4.8-10.8)
MCHC 32.6 L g/dL
(33.0-37.0)
MPV 10.7 H fL
(7.4-10.4)
Abs Immat Gran (auto) 0.1 H 10^3/uL
(0-0.05)
Absolute Lymphs (auto) 4.9 H 10^3/uL
(1.2-3.4)
Absolute Monos (auto) 0.7 H 10^3/uL
(0.1-0.6)
Chloride 110 H mmol/L
(98-107)
BUN 33 H mg/dl
(7-17)
Glucose 132 H mg/dl
(70-99)
09/14/24 23:31
09/14/24 23:31
Vital Signs
Initial and Last Documented VS:
Initial Vital Signs
Temp Pulse Resp BP Pulse Ox
97.8 F 81 22 185/116 94
09/14/24 22:39 09/14/24 22:39 09/14/24 22:39 09/14/24 22:39 09/14/24 22:39
Last Documented Vital Signs
Temp Pulse Resp BP Pulse Ox
97.8 F 77 15 150/77 94
09/14/24 22:39 09/15/24 02:30 09/15/24 02:30 09/15/24 02:00 09/15/24 01:31
*Pulse Oximetry
SaO2: 94
Oxygen Mode of Delivery: Room air
Patient hypoxic: no
*Critical Care Note
Total Time (30-74mins, 75-104mins- exclusive of procedures): Not Applicable
ED Attending Note
-
Portions of this chart may have been created with voice recognition software.� Occasional wrong word or��sound alike� substitutions may have occurred due to the inherent limitations of voice recognition software.
Discharge Plan
Departure
Patient Disposition: Home (Routine Discharge)
Date of Disposition: 09/15/24
Time of Disposition: 03:04
Patient with high blood pressure during this ER visit?: Yes
Condition: Good
Discharge Problem:
Chest pain, GERD (gastroesophageal reflux disease)
Instructions: Acid Reflux and GERD in Adults (DC), BLOOD PRESSURE, Chest Pain
Prescriptions:
No Action
pramipexole 0.25 MG tablet
0.5 mg PO TID
metformin 500 MG tablet extended release 24 hr
1,000 mg PO BID@0800,1700
loratadine 10 MG tablet
10 mg PO DAILY
bumetanide 1 MG tablet
1 mg PO DAILYPRN PRN (Reason: swelling)
cyanocobalamin (vitamin B-12) 1,000 MCG tablet
1,000 mcg PO DAILY Qty: 30 0RF
metoprolol tartrate 25 MG tablet
50 mg PO BID 0RF
rosuvastatin 5 MG tablet
5 mg PO DAILY
polyethylene glycol 3350 17 GRAMS powder in packet
17 grams PO DAILYPRN PRN (Reason: constipation)
clonazepam 0.5 MG tablet
0.5 mg PO HS
Patient Comments:
patient picker feeder on 06/17/21 #30
tramadol 50 MG tablet
50 mg PO Q6HPRN PRN (Reason: moderate pains)
losartan 25 MG tablet
25 mg PO DAILY
gabapentin 100 MG capsule
100 mg PO TID
Patient Comments:
1 cap in morning, 1 cap in afternoon and 3 caps at night
cholecalciferol (vitamin D3) 1,000 UNITS tablet
1,000 units PO DAILY
multivitamin with folic acid [Tab-A-Kaia] 1 TABLET tablet
1 tab PO DAILY
prochlorperazine maleate [Compazine] 10 mg tablet
10 mg PO TID PRN (Reason: nausea and vomiting) Qty: 10 0RF
Referrals:
Jose Miguel Mcrae MD [Active, Gastroenterology] - Call in 1-3 days for appt
Radha Jackson MD [Family Provider, Family Practice]
Activity Restrictions/Additional Instructions:
Please follow-up with your PCP as scheduled in 2 weeks.
Please follow-up with your photogrammetric engineer.
PLEASE RETURN TO THE EMERGENCY DEPARTMENT SHOULD YOU DEVELOP ANY ACUTE RETURN OR WORSENING OF HER SYMPTOMS, INTRACTABLE NAUSEA OR VOMITING, INABILITY TOLERATE ORAL INTAKE, PERSISTENT FEVERS OR CHILLS, SHORTNESS OF BREATH, FAINTING SPELLS, OR ANY
OTHER SIGNS OR SYMPTOMS WORRISOME TO YOU.
Interventions
Interventions:
*Risk Screen - Suicide Last Done: 09/15/24 02:32
*General Assessment Last Done: 09/15/24 02:32
*Neglect/Abuse Screening Last Done: 09/15/24 02:32
*ED- Fall Risk Assessment Last Done: 09/15/24 02:32
*ED COVID-19 Vaccine History Last Done: 09/15/24 02:32
*Nursing Disposition Last Done: 09/15/24 03:24
ED- Cardiac Assessment Last Done: 09/15/24 00:28
Discharge Date and Time
Discharge Date/Time: 09/15/24 03:39
Print Language: S[place]
[2024-09-15] MEDS: MAALOX 50 PO (01:46)
[2024-09-15 02:00] VITALS: BP 150/77
[2024-09-15 02:22] LABS: Troponin I < 0.012 ng/ml
[2024-09-15] MEDS: COMPAZINE 10 MG PO (02:33)
== END 2024-09-15 03:39 | disposition home or self-care (01) ==
LOC: EMR 22:32
PROVIDERS: Physician Assistant; EMERGENCY PHYSICIAN Emergency Medicine; FAMILY PHYSICIAN Family Medicine
DX: R07.89 Other chest pain (principal); M54.2 Cervicalgia; R10.10 Upper abdominal pain, unspecified; R11.0 Nausea; I48.91 Unspecified atrial fibrillation; E78.00 Pure hypercholesterolemia, unspecified; G20.A1 Parkinson's disease without dyskinesia, without mention of fluctuations; I25.10 Atherosclerotic heart disease of native coronary artery without angina pectoris; J44.89 Other specified chronic obstructive pulmonary disease; K21.9 Gastro-esophageal reflux disease without esophagitis; Z79.01 Long term (current) use of anticoagulants; Z79.899 Other long term (current) drug therapy; Z80.0 Family history of malignant neoplasm of digestive organs; Z82.49 Family history of ischemic heart disease and other diseases of the circulatory system; Z83.3 Family history of diabetes mellitus; Z87.891 Personal history of nicotine dependence; Z90.710 Acquired absence of both cervix and uterus; Z95.0 Presence of cardiac pacemaker; Z96.659 Presence of unspecified artificial knee joint
CPT/HCPCS: 99283; 80053; 84484; 85025; 93005

== ENCOUNTER → 2024-09-20 08:43 | Outpatient (REF) | payer MEDICARE, OTHER, SELFPAY ==
[2024-09-20 10:01] LABS: Glycohemoglobin (HgbA1c) 6.4 % (4.0-5.6)
[2024-09-20 10:08] LABS: ALT (SGPT) 13 U/L (0-35); AST (SGOT) 16 U/L (14-36); Albumin 4.1 g/dl (3.5-5.0); Alkaline Phosphatase 78 U/L (38-126); Blood Urea Nitrogen 27 mg/dl (7-17); Calcium 9.3 mg/dl (8.4-10.2); Carbon Dioxide 23 mmol/L (22-30); Chloride 108 mmol/L (98-107); Glucose 145 mg/dl (70-99); Potassium 4.1 mmol/L (3.5-5.1); Sodium 141 mmol/L (135-145); Total Protein 6.7 g/dl (6.3-8.2); eGFR > 60.00
[2024-09-20 10:25] LABS: Microalb - Urine Creatinine 199.900 mg/dl
[2024-09-20 10:33] LABS: Microalbumin, Random Urine 7.6 mg/dl (0.6-1.7)
== END ==
LOC: REG 08:43
PROVIDERS: ATTENDING PHYSICIAN Family Medicine
DX: E11.69 Type 2 diabetes mellitus with other specified complication (principal); E11.65 Type 2 diabetes mellitus with hyperglycemia; R80.9 Proteinuria, unspecified; I10 Essential (primary) hypertension
CPT/HCPCS: 36415; 80053; 82043; 82570; 83036

== ENCOUNTER 2024-10-02 10:09 | Outpatient (RCR) | payer MEDICARE, OTHER, SELFPAY | END 2024-10-02 23:59 | disposition home or self-care (01) | LOC: ROT 10:09 | PROVIDERS: ATTENDING PHYSICIAN Internal Medicine; FAMILY PHYSICIAN Family Medicine | DX: G20.A1 Parkinson's disease without dyskinesia, without mention of fluctuations (principal); Z73.6 Limitation of activities due to disability | CPT/HCPCS: 97110; 97112; 97163; 97166; 97530; 97535 ==

== ENCOUNTER → 2024-10-16 15:12 | Outpatient (REF) | payer MEDICARE, OTHER, SELFPAY | LOC: RAD 15:12 | PROVIDERS: ATTENDING PHYSICIAN Family Medicine | DX: R05.1 Acute cough (principal); J45.21 Mild intermittent asthma with (acute) exacerbation | CPT/HCPCS: 71046 ==

== ENCOUNTER 2024-10-30 08:59 | Outpatient (RCR) | payer MEDICARE, OTHER, SELFPAY | END 2024-10-30 23:59 | disposition home or self-care (01) | LOC: ROT 08:59 | PROVIDERS: ATTENDING PHYSICIAN Internal Medicine; FAMILY PHYSICIAN Family Medicine | DX: G20.A1 Parkinson's disease without dyskinesia, without mention of fluctuations (principal); Z73.6 Limitation of activities due to disability; R26.2 Difficulty in walking, not elsewhere classified; R26.89 Other abnormalities of gait and mobility; Z96.653 Presence of artificial knee joint, bilateral | CPT/HCPCS: 97110; 97112; 97116; 97530 ==

== ENCOUNTER 2024-11-21 11:06 | Outpatient (RCR) | payer MEDICARE, OTHER, SELFPAY | END 2024-11-21 23:59 | disposition home or self-care (01) | LOC: ROT 11:06 | PROVIDERS: ATTENDING PHYSICIAN Internal Medicine; FAMILY PHYSICIAN Family Medicine | DX: G20.A1 Parkinson's disease without dyskinesia, without mention of fluctuations (principal); Z73.6 Limitation of activities due to disability; R26.2 Difficulty in walking, not elsewhere classified; R26.89 Other abnormalities of gait and mobility; Z96.653 Presence of artificial knee joint, bilateral | CPT/HCPCS: 97110; 97112; 97530; 97535 ==

== ENCOUNTER 2024-12-10 17:30 | Outpatient (RCR) | payer MEDICARE, OTHER, SELFPAY | END 2024-12-10 23:59 | disposition home or self-care (01) | LOC: ROT 17:30 | PROVIDERS: ATTENDING PHYSICIAN Internal Medicine; FAMILY PHYSICIAN Family Medicine | DX: G20.A1 Parkinson's disease without dyskinesia, without mention of fluctuations (principal); Z73.6 Limitation of activities due to disability; R26.2 Difficulty in walking, not elsewhere classified; R26.89 Other abnormalities of gait and mobility; Z96.653 Presence of artificial knee joint, bilateral | CPT/HCPCS: 97110 ==

== ENCOUNTER → 2024-12-12 11:20 | Outpatient (REF) | payer MEDICARE, OTHER, SELFPAY ==
[2024-12-12 12:36] LABS: INR 2.46; PT 26.7 Sec (11.4-14.6)
== END ==
LOC: REG 11:20
PROVIDERS: ATTENDING PHYSICIAN Internal Medicine Cardiovascular Disease; FAMILY PHYSICIAN Family Medicine
DX: I48.0 Paroxysmal atrial fibrillation (principal); Z79.01 Long term (current) use of anticoagulants
CPT/HCPCS: 36415; 85610

== ENCOUNTER → 2025-01-07 13:11 | Outpatient (REF) | payer MEDICARE, OTHER, SELFPAY ==
[2025-01-07 13:55] LABS: INR 2.28; PT 25.5 Sec (11.4-14.6)
[2025-01-07 14:57] LABS: TSH 1.93 uIU/ml (0.47-4.68)
== END ==
LOC: REG 13:11
PROVIDERS: ATTENDING PHYSICIAN Internal Medicine Endocrinology, Diabetes & Metabolism; FAMILY PHYSICIAN Family Medicine; OTHER PHYSICIAN Internal Medicine Cardiovascular Disease
DX: E04.2 Nontoxic multinodular goiter (principal); I48.0 Paroxysmal atrial fibrillation; Z79.01 Long term (current) use of anticoagulants; G45.9 Transient cerebral ischemic attack, unspecified
CPT/HCPCS: 36415; 84439; 84443; 85610

== ENCOUNTER → 2025-02-18 09:25 | Outpatient (REF) | payer MEDICARE, OTHER, SELFPAY | LOC: RAD 09:25 | PROVIDERS: ATTENDING PHYSICIAN Orthopaedic Surgery; FAMILY PHYSICIAN Family Medicine; REFERRING PHYSICIAN Radiology Diagnostic Radiology | DX: M25.511 Pain in right shoulder (principal) | CPT/HCPCS: 76882 ==